=== PATIENT | male | born 1990 | race Caucasian/White ===

== ENCOUNTER 2021-10-27 12:04 | Emergency (ER) | payer OTHER ==
[~2021-10-27 12:04] MED LIST: KEFLEX250 MG PO
[2021-10-27 12:59] LABS: BASOPHIL 0.2 % (0-2); EOSINOPHIL 0.6 % (0-5); HCT 39.2 % (42.0-52.0); LYMPHOCYTE 23.9 % (15-48); MCH 30.6 pg (25.0-31.0); MCHC 35.7 g/dL (32.0-36.0); MCV 85.8 fL (78.0-100.0); MONOCYTE 8.1 % (0-12); MPV 9.2 fL (6.0-9.5); NRBC 0; PLT 194 K/uL (150-400); RBC 4.57 M/uL (4.70-6.00); RDW 11.8 % (11.5-14.0); WBC 4.7 K/uL (4.0-10.5)
[2021-10-27 13:22] LABS: ALBUMIN 4.2 g/dL (3.4-5.0); BILIRUBIN - TOTAL 0.3 mg/dL (0.2-1.0); BUN/CREAT RATIO (CALC) 14.1 RATIO; CREATININE 0.78 mg/dL (0.67-1.17); GLOBULIN (CALCULATION) 3.4 g/dL; POTASSIUM 3.8 mmol/L (3.5-5.1); TOTAL PROTEIN 7.6 g/dL (6.4-8.2)
[2021-10-27 13:44] LABS: INFLUENZA A NAA NEGATIVE (NEGATIVE)
[2021-10-27 13:46] LABS: CORONAVIRUS 2019 SARS-COV-2 POSITIVE (NEGATIVE)
[2021-10-27 14:41] LABS: BILIRUBIN NEGATIVE (NEGATIVE); BLOOD 1+ Ery/uL (NEGATIVE); CLARITY CLEAR (CLEAR); COLOR YELLOW (YELLOW); GLUCOSE (U) NORMAL (NORMAL); LEUKOCYTES NEGATIVE Leu/uL (NEGATIVE); NITRITE NEGATIVE (NEGATIVE); PROTEIN NEGATIVE (NEGATIVE); SPECIFIC GRAVITY 1.015 (1.001-1.030); UROBILINOGEN 0.2 mg/dL (0.2-1.0)
[2021-10-27 14:54] LABS: URINARY WBC RARE
[2021-10-27] MEDS ORDERED: ZOFRAN4 M1 PO (16:52)
== END 2021-10-27 17:35 | disposition home or self-care (01) ==
LOC: FER 12:04
PROVIDERS: Nurse Practitioner Family
DX: U07.1 COVID-19 (principal); Z23 Encounter for immunization; Z91.041 Radiographic dye allergy status
CPT/HCPCS: 36415; 80053; 81001; 82150; 83690; 85025; J2405; J7030; M0245; Q0245; Q9967; U0002

== ENCOUNTER 2022-01-17 06:26 | Emergency (ER) | payer OTHER ==
[~2022-01-17 06:26] MED LIST changes: +ZOFRAN4 M1 PO
[2022-01-17 07:14] LABS: BASOPHIL 0.5 % (0-2); EOSINOPHIL 4.2 % (0-5); HCT 41.7 % (42.0-52.0); HGB 14.2 g/dl (13.2-18.0); LYMPHOCYTE 23.4 % (15-48); MCH 30.4 pg (25.0-31.0); MCHC 34.1 g/dL (32.0-36.0); MCV 89.3 fL (78.0-100.0); MONOCYTE 10.5 % (0-12); MPV 9.4 fL (6.0-9.5); NEUTROPHIL 60.9 % (41-80); NRBC 0; PLT 238 K/uL (150-400); RBC 4.67 M/uL (4.70-6.00)
[2022-01-17 07:16] LABS: ALBUMIN 3.9 g/dL (3.4-5.0); BILIRUBIN - DIRECT 0.1 mg/dL (0.00-0.20); BILIRUBIN - TOTAL 0.4 mg/dL (0.2-1.0); CREATININE 0.92 mg/dL (0.67-1.17); GLOBULIN (CALCULATION) 3.5 g/dL; POTASSIUM 3.7 mmol/L (3.5-5.1); TOTAL PROTEIN 7.4 g/dL (6.4-8.2)
[2022-01-17] MEDS ORDERED: PERCOCET 7.5/321 TAB PO ×2 (08:58→10:20)
[2022-01-17] MEDS ORDERED: ONDANSETRON ODT4 MG PO (08:58)
[2022-01-17 09:26] LABS: BILIRUBIN NEGATIVE (NEGATIVE); BLOOD 3+ Ery/uL (NEGATIVE); CLARITY HAZY (CLEAR); COLOR YELLOW (YELLOW); GLUCOSE (U) NORMAL (NORMAL); LEUKOCYTES NEGATIVE Leu/uL (NEGATIVE); NITRITE NEGATIVE (NEGATIVE); PROTEIN TRACE (LOW) mg/dL (NEGATIVE); SPECIFIC GRAVITY >=1.030 (1.001-1.030); UROBILINOGEN 0.2 mg/dL (0.2-1.0)
[2022-01-17 09:35] LABS: URINARY RBC TNTC; URINARY WBC RARE
[2022-01-17 09:36] LABS: BACTERIA TRACE; MUCOUS TRACE; SQUAMOUS EPITHELIAL CELLS RARE
== END 2022-01-17 09:30 | disposition home or self-care (01) ==
LOC: FER 06:26
PROVIDERS: Emergency Medicine Emergency Medical Services
DX: N13.2 Hydronephrosis with renal and ureteral calculous obstruction (principal)
CPT/HCPCS: 36415; 80048; 80076; 81001; 85025; J1170; J1885; J2405; J7030